=== PATIENT | female | born 1990 | race Caucasian/White ===

== ENCOUNTER 2022-09-13 07:52 | Inpatient (IN) | payer OTHER ==
[2022-09-13] MEDS ORDERED: Lidocaine 1% 50 ML MDV INJECT PRN (08:27)
[2022-09-13] MEDS ORDERED: Nalbuphine 10 MG/0.5 ML Syringe IVPUSH PRN (08:27)
[2022-09-13] MEDS ORDERED: Lactated Ringers 1,000 ML IV SCH (08:30)
[2022-09-13] MEDS ORDERED: Oxytocin/Lactated Ringers 10 UNIT/1,000 ML BAG IV SCH (08:30)
[2022-09-13 08:45] LABS: BASOPHILS ABSOLUTE AUTO 0.01 K/mm3 (0.01-0.08); BASOPHILS PERCENT AUTO 0.1 % (0.1-1.2); EOSINOPHILS ABSOLUTE AUTO 0.07 K/mm3 (0.04-0.36); EOSINOPHILS PERCENT AUTO 0.5 (0.7-5.8); IMMATURE GRAN ABSOLUTE AUTO 0.05 K/mm3 (0.00-0.10); IMMATURE GRAN PERCENT AUTO 0.4 % (<=1.0); LYMPHOCYTES ABSOLUTE AUTO 1.39 K/mm3 (1.18-3.74); LYMPHOCYTES PERCENT AUTO 9.8 % (19.3-51.7); MEAN CORPUSCULAR HEMOGLOBIN 31.1 pg (25.6-32.2); MEAN CORPUSCULAR HGB CONC 34.6 g/dl (32.2-35.5); MEAN CORPUSCULAR VOLUME 89.7 fl (79.4-94.8); MONOCYTES ABSOLUTE AUTO 0.89 K/mm3 (0.24-0.36); MONOCYTES PERCENT AUTO 6.3 % (4.7-12.5); NEUTROPHILS ABSOLUTE AUTO 11.72 K/mm3 (1.56-6.13); NEUTROPHILS PERCENT AUTO 82.9 % (34.0-71.1); RED BLOOD CELL COUNT 4.57 M/mm3 (3.98-5.22); WHITE BLOOD CELL COUNT,WBC 14.13 K/mm3 (3.98-10.04)
[2022-09-13 08:49] LABS: HEMOGLOBIN 14.2 gm/dl (11.2-15.7); PLATELET COUNT,PLT 181 K/mm3 (182-369)
[2022-09-13] MEDS ORDERED: Docusate Sodium 100 MG Cap PO PRN (11:38)
[2022-09-13] MEDS ORDERED: Benzocaine/Menthol 20%-0.5% Spray 78 GM Cannister TOP PRN (11:38)
[2022-09-13] MEDS ORDERED: Witch Hazel Medicated Pads 40/Jar TOP PRN (11:38)
[2022-09-13] MEDS ORDERED: Acetaminophen 325 MG Tab PO PRN (11:38)
[2022-09-13] MEDS: FLUoxetine 20 MG Cap PO SCH (16:31)
[2022-09-13] MEDS: Ibuprofen 600 MG Tab PO PRN ×2 (16:34→22:20)
[2022-09-14] MEDS: FLUoxetine 20 MG Cap PO SCH (08:27)
[2022-09-14] MEDS ORDERED: Prenatal Multivitamin with Calcium/Folic Acid/Iron Tab PO SCH (09:00)
== END 2022-09-14 12:35 | disposition home or self-care (01) | DRG 807 ==
LOC: JD.OBCHECK 07:52 → JD.OB 07:55 → JD.OBCHECK 08:05 → JD.OB 08:05 → OBSVTOIN 09:43 → JD.OB 09:44
PROVIDERS: ADMIT Family Medicine; ATTEND Family Medicine
PROC: 10E0XZZ Delivery of Products of Conception, External Approach (ICD-10-PCS; principal; 2022-09-13)
PROC: 0KQM0ZZ Repair Perineum Muscle, Open Approach (ICD-10-PCS; 2022-09-13)
PROC: 10907ZC Drainage of Amniotic Fluid, Therapeutic from Products of Conception, Via Natural or Artificial Opening (ICD-10-PCS; 2022-09-13)
PROC: 3E033VJ Introduction of Other Hormone into Peripheral Vein, Percutaneous Approach (ICD-10-PCS; 2022-09-13)
DX: O99.344 Other mental disorders complicating childbirth (principal); Z37.0 Single live birth; O70.1 Second degree perineal laceration during delivery; O77.0 Labor and delivery complicated by meconium in amniotic fluid; O69.81X0 Labor and delivery complicated by cord around neck, without compression, not applicable or unspecified; O99.52 Diseases of the respiratory system complicating childbirth; Z3A.39 39 weeks gestation of pregnancy; J45.909 Unspecified asthma, uncomplicated; F32.A Depression, unspecified; Z88.0 Allergy status to penicillin; Z88.2 Allergy status to sulfonamides; Z79.899 Other long term (current) drug therapy; Z87.891 Personal history of nicotine dependence
CPT/HCPCS: 36415; 59025; 59409; 85025; 86592; 86850; 86900; 86901; A9270-GY; J2001; J2590

== ENCOUNTER 2024-02-26 23:23 | Inpatient (IN) | payer BC, OTHER ==
[2024-02-26] MEDS ORDERED: Lactated Ringers 1,000 ML IV SCH (23:45)
[2024-02-26] MEDS ORDERED: Lidocaine 1% 50 ML MDV INJECT PRN (23:59)
[2024-02-26] MEDS ORDERED: Sodium Chloride 0.9% 10 ML Syringe FLUSH PRN (23:59)
[2024-02-26] MEDS ORDERED: Nalbuphine 10 MG/1 ML Vial IVPUSH PRN (23:59)
[2024-02-26] MEDS ORDERED: Ondansetron 4 MG/2 ML SDV IVPUSH PRN (23:59)
[2024-02-27 00:24] LABS: BASOPHILS PERCENT AUTO 0.2 % (0.0-1.0); EOSINOPHILS ABSOLUTE AUTO 0.1 K/mm3 (0.0-0.4); EOSINOPHILS PERCENT AUTO 0.5 % (0.0-6.0); HEMATOCRIT 35.2 % (37.0-47.0); IMMATURE GRAN ABSOLUTE AUTO 0.11 K/mm3 (0.00-0.05); IMMATURE GRAN PERCENT AUTO 0.5 % (0.0-0.4); LYMPHOCYTES ABSOLUTE AUTO 2.9 K/mm3 (1.0-4.8); LYMPHOCYTES PERCENT AUTO 14.3 % (24.0-44.0); MEAN CORPUSCULAR HEMOGLOBIN 30.2 pg (28.0-32.0); MEAN CORPUSCULAR HGB CONC 34.1 g/dl (32.0-36.0); MEAN CORPUSCULAR VOLUME 88.7 fl (83.0-99.0); MEAN PLATELET VOLUME 11.6 fl (9.4-12.3); MONOCYTES ABSOLUTE AUTO 1.5 K/mm3 (0.0-0.8); MONOCYTES PERCENT AUTO 7.3 % (0.0-8.0); NEUTROPHILS ABSOLUTE AUTO 15.5 K/mm3 (1.8-7.7); NEUTROPHILS PERCENT AUTO 77.2 % (41.0-71.0); PLATELET COUNT,PLT 246 K/mm3 (150-400); RED BLOOD CELL COUNT 3.97 M/mm3 (4.10-5.30); WHITE BLOOD CELL COUNT,WBC 20.03 K/mm3 (3.9-11.3)
[2024-02-27] MEDS: Oxytocin/0.9 % Sodium Chloride 30 UNIT/500 ML BAG IV SCH (01:02)
[2024-02-27] MEDS ORDERED: Docusate Sodium 100 MG Cap PO PRN (01:40)
[2024-02-27] MEDS: Ibuprofen 600 MG Tab PO SCH (02:19)
[2024-02-27] MEDS: Witch Hazel Medicated Pads 40/Jar TOP PRN (02:19)
[2024-02-27] MEDS: Benzocaine/Menthol 20%-0.5% Spray 78 GM Cannister TOP PRN (02:20)
[2024-02-27] MEDS: Acetaminophen 325 MG Tab PO PRN (05:55)
[2024-02-27] MEDS ORDERED: Sodium Chloride 0.9% 10 ML Syringe FLUSH SCH (09:00)
== END 2024-02-28 01:30 | disposition home or self-care (01) | DRG 560 ==
LOC: JD.OBCHECK 23:23 → JD.OB 23:30 → JD.OBCHECK 02-27 00:06 → JD.OB 02-27 00:08 → OBSVTOIN 02-27 00:54 → JD.OB 02-27 00:55
PROVIDERS: ADMIT Family Medicine; ATTEND Family Medicine
PROC: 10E0XZZ Delivery of Products of Conception, External Approach (ICD-10-PCS; principal; 2024-02-27)
PROC: 0HQ9XZZ Repair Perineum Skin, External Approach (ICD-10-PCS; 2024-02-27)
PROC: 10907ZC Drainage of Amniotic Fluid, Therapeutic from Products of Conception, Via Natural or Artificial Opening (ICD-10-PCS; 2024-02-27)
DX: O99.344 Other mental disorders complicating childbirth (principal); Z3A.39 39 weeks gestation of pregnancy; Z37.0 Single live birth; O70.0 First degree perineal laceration during delivery; O99.52 Diseases of the respiratory system complicating childbirth; F41.9 Anxiety disorder, unspecified; F32.9 Major depressive disorder, single episode, unspecified; J45.909 Unspecified asthma, uncomplicated; Z88.0 Allergy status to penicillin; Z88.2 Allergy status to sulfonamides
CPT/HCPCS: 36415; 59025; 59409; 85025; 86592; 86850; 86900; 86901; A9270-GY; J7999